=== PATIENT | male | born 1995 | race Caucasian/White ===

== ENCOUNTER 2018-11-02 11:22 | Emergency (ER) | payer BC, OTHER ==
[2018-11-02] MEDS ORDERED: RX INFO: IV CONTRAST WAS GIVEN 1 EACH MISC MISCELLANE PRN (11:27)
[2018-11-02] MEDS ORDERED: DIPH,PERTUS(ACELL)TETVAC-LF 0.5 ML VIAL IM ONE (11:27)
[2018-11-02] MEDS ORDERED: SODIUM CHLORIDE 0.9% 1,000 ML IV STA (11:27)
[2018-11-02] MEDS ORDERED: fentaNYL (PF) 50 MCG/ML 2 ML AMP IVP STA ×2 (11:30→13:46)
[2018-11-02 11:48] LABS: Basophils # (A) 0.1 k/uL (0-0.2); Basophils % (A) 0 %; Eosinophils # (A) 0.2 k/uL (0-0.7); Eosinophils % (A) 1 %; HCT 44.8 % (39.0-53.0); HGB 15.5 gm/dL (13.0-17.5); Lymphocytes # (A) 4.7 k/uL (1.0-4.8); Lymphocytes % (A) 25 %; MCHC 34.6 g/dL (31.0-37.0); MCV 95.2 fL (80.0-100.0); Mean Platelet Volume 6.8; Monocytes # (A) 0.6 k/uL (0-1.0); Monocytes % (A) 3 %; Neutrophils # (A) 12.6 k/uL (1.3-7.7); Neutrophils % (A) 68 %; Platelet Count 368 k/uL (150-450); RBC 4.71 m/uL (4.30-5.90); RDW 12.4 % (11.5-15.5); WBC 18.7 k/uL (3.8-10.6)
[2018-11-02 11:56] LABS: ALT 51 U/L (21-72); AST 53 U/L (17-59); Albumin 4.4 g/dL (3.5-5.0); Alcohol <10 mg/dL; Alkaline Phosphatase 77 U/L (38-126); Amylase 75 U/L (30-110); Anion Gap 10 mmol/L; Blood Urea Nitrogen 17 mg/dL (9-20); Calcium 9.2 mg/dL (8.4-10.2); Carbon Dioxide 27 mmol/L (22-30); Chloride 106 mmol/L (98-107); Glucose 120 mg/dL (74-99); Lipase 281 U/L (23-300); Sodium 143 mmol/L (137-145); Total Bilirubin 1.1 mg/dL (0.2-1.3)
[2018-11-02 12:00] LABS: INR 1.1 (<1.2); Partial Thromboplastin Time 23.6 sec (22.0-30.0); Prothrombin Time 11.4 sec (9.0-12.0)
[2018-11-02 12:05] LABS: Potassium 3.3 mmol/L (3.5-5.1)
--- NOTE | 2018-11-02 12:05 | XR ---
AP pelvis HISTORY: Trauma and pain Single frontal view of the pelvis There is overlying artifact, backboard. Alignment and bone mineralization are maintained. Patient is rotated. IMPRESSION: No fracture or dislocation is evident. Limitations as described, follow-up as indicated.
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
--- NOTE | 2018-11-02 12:08 | XR ---
EXAMINATION TYPE: XR chest 1V portable DATE OF EXAM: 11/02/2018 COMPARISON: NONE HISTORY: Trauma and pain TECHNIQUE: Single frontal view of the chest is obtained. FINDINGS: There is an overlying backboard and cardiac leads. Patient is rotated. Cardiac mediastinal silhouette, pulmonary vascularity and ilene within normal limits. No evident airspace disease, pneumo thorax, or pleural effusion. No evident fracture. IMPRESSION: No acute process.
[2018-11-02] MEDS ORDERED: MORPHINE SULFATE 4 MG/ML SYRINGE IV STA (12:11)
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
[2018-11-02 12:18] LABS: Creatine Kinase 173 U/L (55-170)
[2018-11-02 12:31] LABS: Creatine Kinase MB 0.5 ng/mL (0.0-2.4); Troponin I <0.012 ng/mL (0.000-0.034)
[2018-11-02] MEDS ORDERED: MORPHINE SULFATE 4 MG/ML SYRINGE IVP STA ×2 (12:55→14:31)
--- NOTE | 2018-11-02 13:27 | XR ---
EXAMINATION TYPE: XR knee complete bilateral DATE OF EXAM: 11/02/2018 CLINICAL HISTORY: pain TECHNIQUE: Three views of the left knee are obtained. COMPARISON: None. FINDINGS: There is no acute fracture/dislocation. The tri-compartment joint spaces appear within no rmal limits. The overlying soft tissue appears unremarkable. IMPRESSION: There is no acute fracture or dislocation ICD 10 NO FRACTURE, INITIAL EVALUATION EXAMINATION TYPE: XR knee complete bilateral DATE OF EXAM: 11/02/2018 CLINICAL HISTORY: pain TECHNIQUE: Three views of the right knee are obtained. COMPARISON: None. FINDINGS: Comminuted fibular head fracture. Intercondylar irregularity noted as well as an additional fracture not excluded. The tri-compartment joint spaces appear within normal limits. The overlying soft tissue appears unremarkable. IMPRESSION: Comminuted fibular head fracture. Intercondylar irregularity noted as well as an additio nal fracture not excluded.
--- NOTE | 2018-11-02 13:31 | XR ---
EXAMINATION TYPE: XR ankle complete RT DATE OF EXAM: 11/02/2018 COMPARISON: NONE HISTORY: Pain TECHNIQUE: Frontal, lateral and oblique images of the right ankle are obtained. COMPARISON: None. FINDINGS: There is curvilinear ossific density noted adjacent to the medial aspect of the os calcis f elt to reflect chip or avulsion fracture. The joint spaces appear within normal limits. The overlyi ng soft tissue appears unremarkable. IMPRESSION: There is curvilinear ossific density noted adjacent to the medial aspect of the os calci s felt to reflect chip or avulsion fracture.
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
[2018-11-02] MEDS ORDERED: HYDROmorphone 1 MG/ML 1 ML SYRINGE IVP STA (14:51)
== END 2018-11-02 15:05 | disposition other institution (70) ==
LOC: EC 11:22
DX: S82.831A Other fracture of upper and lower end of right fibula, initial encounter for closed fracture (principal); S02.81XA Fracture of other specified skull and facial bones, right side, initial encounter for closed fracture; S02.40CA Maxillary fracture, right side, initial encounter for closed fracture; T14.8XXA Other injury of unspecified body region, initial encounter; F17.200 Nicotine dependence, unspecified, uncomplicated; Z91.013 Allergy to seafood; V89.2XXA Person injured in unspecified motor-vehicle accident, traffic, initial encounter; Z53.8 Procedure and treatment not carried out for other reasons
CPT/HCPCS: 99285; 96374; 96375 ×2; 96376 ×2; 96361; 36415; 86900; 86901; 80053; 82150; 82550; 82553; 83605; 83690; 84484; 85025; 85610; 85730; 86850; 80320; 73562; 72170; 73610; 71045; 72125; 70486; 70450; 71260; 74177; J2270; J3010; J1170; Q9967

== ENCOUNTER 2018-12-08 16:36 | Emergency (ER) | payer BC, OTHER ==
[2018-12-08] MEDS ORDERED: SODIUM CHLORIDE 0.9% 1,000 ML IV STA ×2 (16:42)
[2018-12-08 16:46] VITALS: RESP 16; TEMP 98.2
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
--- NOTE | 2018-12-08 17:05 | XR ---
EXAMINATION TYPE: XR chest 2V DATE OF EXAM: 12/08/2018 COMPARISON: Chest x-ray November 02, 2018 HISTORY: Weakness. TECHNIQUE: Frontal and lateral views of the chest are obtained. FINDINGS: There is no focal air space opacity, pleural effusion, or pneumothorax seen. The cardiac silhouette size is within normal limits. The osseous structures are intact. IMPRESSION: No acute cardiopulmonary process.
--- NOTE | 2018-12-08 17:07 | XR ---
EXAMINATION TYPE: XR soft tissue neck DATE OF EXAM: 12/08/2018 COMPARISON: NONE HISTORY: Weakness with throat swelling. TECHNIQUE: 2 view soft tissue neck are acquired. FINDINGS: No suspicious prevertebral soft tissue swelling. Nasopharyngeal and oropharyngeal airways a re patent. No suspicious radiodense foreign body. IMPRESSION: As above.
[2018-12-08 17:45] LABS: ALT 18 U/L (21-72); AST 27 U/L (17-59); Albumin 4.5 g/dL (3.5-5.0); Alkaline Phosphatase 114 U/L (38-126); Anion Gap 10 mmol/L; Blood Urea Nitrogen 17 mg/dL (9-20); Calcium 9.6 mg/dL (8.4-10.2); Carbon Dioxide 24 mmol/L (22-30); Chloride 105 mmol/L (98-107); Glucose 114 mg/dL (74-99); Phosphorus 4.5 mg/dL (2.5-4.5); Sodium 139 mmol/L (137-145); Total Bilirubin 0.7 mg/dL (0.2-1.3); Total Protein 7.8 g/dL (6.3-8.2)
[2018-12-08 18:00] LABS: Basophils % (A) 0 %; Eosinophils # (A) 0.2 k/uL (0-0.7); Eosinophils % (A) 1 %; HGB 12.6 gm/dL (13.0-17.5); Lymphocytes # (A) 1.5 k/uL (1.0-4.8); Lymphocytes % (A) 7 %; MCH 30.8 pg (25.0-35.0); MCHC 33.1 g/dL (31.0-37.0); Monocytes # (A) 1.2 k/uL (0-1.0); Monocytes % (A) 5 %; Neutrophils # (A) 19.4 k/uL (1.3-7.7); Neutrophils % (A) 86 %; Platelet Count 470 k/uL (150-450); RBC 4.09 m/uL (4.30-5.90); RDW 13.6 % (11.5-15.5); WBC 22.4 k/uL (3.8-10.6)
[2018-12-08 18:06] LABS: Partial Thromboplastin Time 28.5 sec (22.0-30.0); Prothrombin Time 10.9 sec (9.0-12.0)
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
[2018-12-08 20:07] VITALS: BP 129/87; PULSE 87
== END 2018-12-08 20:07 | disposition home or self-care (01) ==
LOC: EC 16:36
DX: R22.0 Localized swelling, mass and lump, head (principal); T50.905A Adverse effect of unspecified drugs, medicaments and biological substances, initial encounter; F17.200 Nicotine dependence, unspecified, uncomplicated; Z79.01 Long term (current) use of anticoagulants; Z79.899 Other long term (current) drug therapy; Z88.0 Allergy status to penicillin; Z91.013 Allergy to seafood
CPT/HCPCS: 36415; 93005; 80053; 83605; 83735; 84100; 84443; 84484; 85025; 85610; 85730; 87040; 87081; 87430; 70360; 71046; 71275; 99285; 96360; 96361 ×2; Q9967

== ENCOUNTER 2018-12-11 18:49 | Inpatient (IN) | payer BC, OTHER ==
[2018-12-11] MEDS ORDERED: LEVOFLOXACIN 750MG-D5W PMX 750 MG in DEXTROSE/WATER 1 150ML.BAG IVPB STA (22:37)
[2018-12-11] MEDS: SODIUM CHLORIDE 0.9% 500 ML 500 ML IV SCH (22:52)
[2018-12-11 22:54] LABS: Basophils # (A) 0.1 k/uL (0-0.2); Basophils % (A) 1 %; Eosinophils # (A) 0.4 k/uL (0-0.7); Eosinophils % (A) 4 %; HCT 41.2 % (39.0-53.0); HGB 13.5 gm/dL (13.0-17.5); Lymphocytes # (A) 2.6 k/uL (1.0-4.8); Lymphocytes % (A) 26 %; MCH 30.6 pg (25.0-35.0); MCHC 32.7 g/dL (31.0-37.0); MCV 93.6 fL (80.0-100.0); Mean Platelet Volume 6.3; Monocytes # (A) 0.5 k/uL (0-1.0); Monocytes % (A) 5 %; Neutrophils # (A) 6.3 k/uL (1.3-7.7); Neutrophils % (A) 64 %; Platelet Count 468 k/uL (150-450); RDW 13.2 % (11.5-15.5)
[2018-12-11 23:03] LABS: INR 0.9 (<1.2); Partial Thromboplastin Time 28.1 sec (22.0-30.0); Prothrombin Time 9.9 sec (9.0-12.0)
[2018-12-11 23:07] LABS: ALT 41 U/L (21-72); AST 36 U/L (17-59); African American GFR (CKD) >90 (>60 ml/min/1.73 sqM); Albumin 4.7 g/dL (3.5-5.0); Alkaline Phosphatase 139 U/L (38-126); Anion Gap 12 mmol/L; Blood Urea Nitrogen 19 mg/dL (9-20); Calcium 9.8 mg/dL (8.4-10.2); Carbon Dioxide 27 mmol/L (22-30); Chloride 102 mmol/L (98-107); Glucose 89 mg/dL (74-99); Potassium 4.4 mmol/L (3.5-5.1); Sodium 141 mmol/L (137-145); Total Bilirubin 0.5 mg/dL (0.2-1.3); Total Protein 8.1 g/dL (6.3-8.2)
[2018-12-12] MEDS ORDERED: NALOXONE 0.4 MG/ML 1 ML VIAL IV PRN (00:24)
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
[2018-12-12 00:56] LABS: Appearance,Urine Clear (Clear); Bilirubin,Urine Negative (Negative); Blood,Urine Negative (Negative); Color,Urine Light Yellow; Glucose,Urine (UA) Negative (Negative); Ketones,Urine Negative (Negative); Leukocyte Esterase,Urine Negative (Negative); Nitrite,Urine Negative (Negative); Protein,Urine Negative (Negative); Specific Gravity,Urine 1.017 (1.001-1.035); Urobilinogen,Urine <2.0 mg/dL (<2.0)
--- NOTE | 2018-12-12 00:57 | XR ---
EXAM: XR Chest, 2 Views CLINICAL HISTORY: Pain. TECHNIQUE: Frontal and lateral views of the chest. COMPARISON: CXR dated 12/18/2018. FINDINGS: Lungs: Question subtle right perihilar opacity. Lungs otherwise clear. Pleural space: No pleural effusion. No pneumothorax. Heart: Unremarkable. No cardiomegaly. Mediastinum: Unremarkable. Bones/joints: Unremarkable. IMPRESSION: Question subtle right perihilar opacity, possibly normal vascular structures although subtle right perihilar infiltrate is not entirely excluded. Recommend clinical correlation and follow-up CXR to reassess as clinically warranted. Otherwise no evidence of acute cardiopulmonary process.
[2018-12-12] MEDS ORDERED: ONDANSETRON 4 MG TAB PO PRN (01:10)
[2018-12-12] MEDS: HYDROcodone/APAP 10-325MG 1 EACH TAB PO PRN (03:27)
[2018-12-12] MEDS: APIXABAN 5 MG TAB PO SCH ×2 (08:35→22:00)
[2018-12-12] MEDS: GABAPENTIN 100 MG CAP PO SCH ×3 (08:35→22:00)
[2018-12-12] MEDS: METHOCARBAMOL 500 MG TAB PO PRN (09:36)
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
[2018-12-13] MEDS: METHOCARBAMOL 500 MG TAB PO PRN ×3 (00:05→20:32)
[2018-12-13] MEDS: GABAPENTIN 100 MG CAP PO SCH ×3 (08:23→20:17)
[2018-12-13] MEDS: APIXABAN 5 MG TAB PO SCH ×2 (08:23→20:17)
[2018-12-13] MEDS: HYDROcodone/APAP 10-325MG 1 EACH TAB PO PRN ×2 (08:27→20:32)
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
[2018-12-14 00:02] VITALS: RESP 18
[2018-12-14 05:50] VITALS: BP 101/63; PULSE 75; TEMP 97.5
[2018-12-14] MEDS: APIXABAN 5 MG TAB PO SCH (10:18)
[2018-12-14] MEDS: GABAPENTIN 100 MG CAP PO SCH (10:18)
[2018-12-14] MEDS: HYDROcodone/APAP 10-325MG 1 EACH TAB PO PRN (10:27)
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
--- NOTE | 2018-12-17 13:52 | CDI ---
Documentation Clarification Form Date: 12/17/18 From: Xiao Yan Phone: If you have a question regarding this query, please contact Layne Martines [phone] between 8am and 5pm. Admit Date: 12/12/2018 12:00:00 AM Patient Name: Abdirizak Barrios Visit Number: [id number] Discharge Date: 12/14/2018 10:38:00 AM ATTENTION: The Clinical Documentation Specialists (CDI) and [facility] Coding Staff appreciate your assistance in clarifying documentation. Please respond to the clarification below the line at the bottom and electronically sign. The CDI & [facility] Coding staff will review the response and follow-up if needed. Please note: Queries are made part of the Legal Health Record. If you have any questions, please contact the author of this message via ITS. Dr. Suyapa Glass Bacteremia is documented in the H&P, discharge summary and in your progress note. Patient history/risk factors: Patient recently at another facility for sore throat and fever of 101/5. Patient was sent home on amoxicillin and had a rash from it. Blood culture there came back positive for Moraxella. Clinical Indicators: Positive blood cultures WBC: 10.0 Left Shift: 6.3 Blood Culture: No growth from the blood cultures drawn during this admission. Consult: Per documentation in Dr. Beck 12/13 progress note, the patient's urpper respiratory infection resulted in fever and sepsis. Treatment: Bolus of 1/2 L of sodium chloride. Antibiotics: IV Ceftriaxone, Bacteremia is considered a lab finding. Please clarify if that lab finding is clinical indicator of a more definitive medical diagnosis such as: Sepsis Infectious Process, please specify: Other, please specify Unable to determine Sepsis MTDD
== END 2018-12-14 10:38 | disposition home health service (06) | DRG 872 ==
LOC: EC 18:49 → 4MS4W 12-12
PROVIDERS: ADMIT Hospitalist; ATTEND Hospitalist
DX: A41.59 Other Gram-negative sepsis (principal); G62.9 Polyneuropathy, unspecified; J06.9 Acute upper respiratory infection, unspecified; S42.109A Fracture of unspecified part of scapula, unspecified shoulder, initial encounter for closed fracture; S83.511A Sprain of anterior cruciate ligament of right knee, initial encounter; S83.421A Sprain of lateral collateral ligament of right knee, initial encounter; Z79.01 Long term (current) use of anticoagulants; Z79.899 Other long term (current) drug therapy; Z88.0 Allergy status to penicillin; Z88.1 Allergy status to other antibiotic agents; Z88.2 Allergy status to sulfonamides; Z87.891 Personal history of nicotine dependence; Z86.718 Personal history of other venous thrombosis and embolism; Z82.49 Family history of ischemic heart disease and other diseases of the circulatory system; V89.2XXA Person injured in unspecified motor-vehicle accident, traffic, initial encounter; Y92.410 Unspecified street and highway as the place of occurrence of the external cause
CPT/HCPCS: 36415; 71046; 80053; 81003; 83605; 84145; 85025; 85610; 85652; 85730; 86140; 87040; 87086; 96365; 96366; 99285

== ENCOUNTER 2022-12-27 06:09 | Emergency (ER) | payer BC, OTHER ==
[2022-12-27] MEDS ORDERED: PROPARACAINE 0.5% OPHTH DROPS 15 ML BTL BOTH EYES STA (06:17)
[2022-12-27] MEDS ORDERED: FLUORESCEIN STRIPS 1 MG STRIP RIGHT EYE ONE (06:17)
[2022-12-27] MEDS ORDERED: CIPROFLOXACIN 0.3% OPHTH SOLN 5 ML BTL RIGHT EYE ONE (06:30)
[2022-12-27] MEDS ORDERED: KETOROLAC 0.5% OPHTH DROPS 5 ML BTL RIGHT EYE ONE (06:30)
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
[2022-12-27 07:10] VITALS: BP 113/66; PULSE 79; RESP 20; TEMP 97.8
== END 2022-12-27 07:10 | disposition home or self-care (01) ==
LOC: EC 06:09
DX: T15.01XA Foreign body in cornea, right eye, initial encounter (principal); F17.200 Nicotine dependence, unspecified, uncomplicated; F12.90 Cannabis use, unspecified, uncomplicated; Z88.0 Allergy status to penicillin; Z88.1 Allergy status to other antibiotic agents; Z91.013 Allergy to seafood; X58.XXXA Exposure to other specified factors, initial encounter
CPT/HCPCS: 99283